=== PATIENT | male | born 1995 | race Caucasian/White ===

== ENCOUNTER 2020-06-15 11:08 | Emergency (ER) | payer BC, SELFPAY ==
--- NOTE | ~2020-06-15 | XR_ITS ---
EXAMINATION: XR hand RT min 3V DATE: 06/15/2020 11:44 INDICATION: Right hand injury and pain. TECHNIQUE: 3 views of right hand were obtained. COMPARISON: None. FINDINGS: Bone alignment is normal. No fracture. Joint spaces are well maintained. IMPRESSION: 1. Normal right hand. Reviewed, dictated and finalized at location A. IMPRESSION: 1. Normal right hand.
[2020-06-15 11:25] VITALS: BP 171/100; PULSE 78; RESP 20; TEMP 36.9; O2SAT 96
--- NOTE | 2020-06-15 11:26 | ED.EXTPRO ---
HPI - Extremity Problem General Chief complaint: Extremity Injury, Upper Stated complaint: pain in R hand Time Seen by Provider: 06/15/20 11:10 Source: patient Mode of arrival: ambulatory Limitations: no limitations History of Present Illness HPI Narrative: 24-year-old man comes in today complaining of pain over the dorsal aspect of his hand, particularly over the 3rd MCP. He states that he slipped at work and hit his hand on a steel plate monitor her wall. He denies any numbness or tingling. He denies any prior hand fractures. MD Complaint: extremity pain Onset (ago): hour(s) (1) Pain Consistency: constant Location: right and upper extremity Quality: sharp Radiation: none Relieving factors: cold therapy and rest Exacerbating factors: range of motion and palpation Related Data Home Medications Medication Instructions Recorded Confirmed venlafaxine 225 mg PO QAM 06/15/20 06/15/20 Allergies Allergy/AdvReac Type Severity Reaction Status Date / Time No Known Allergies Allergy Verified 06/15/20 11:47 Review of Systems Constitutional: Constitutional: Denies chills and Denies fever(s) ENT: Denies dysphagia, Denies nasal congestion and Denies sore throat Cardiovascular: Cardiovascular: Denies chest pain and Denies radiating jaw, neck or arm pain Respiratory: Respiratory: Denies cough and Denies dyspnea Gastrointestinal: Gastrointestinal: Denies abdominal pain, Denies nausea and Denies vomiting Musculoskeletal: Musculoskeletal: Reports as per HPI, Denies back pain, Reports arthralgias and Reports joint swelling Integumentary/Breasts: Skin/Breast: Denies pruritus, Denies erythema and Denies rash Neurologic: Denies vertigo, Denies dizziness and Denies syncope Hematologic/Lymphatic: Hematologic/Lymphatic: Denies easy bleeding and Denies easy bruising Allergic/Immunologic: Allergic/Immunologic: Denies lip swelling and Denies wheezing [facility] Social History Social History (Updated 06/15/20 @ 11:32 by Celio Tompkins MD) Substance use: never Living arrangements: with family Occupation/Education: occupation Additional occupation/education comments: steel fabrication Exam Const: General: alert Nutritional Appearance: obese Orientation/consciousness: patient oriented x3 Limitations: no limitations Other: Moderate acute distress HENMT: Face and sinus: normal facial exam Eyes: Conjunctivae: conjunctivae normal Pupils: Equal, round and reactive pupils present EOM: EOMs intact bilaterally Resp: Effort & Inspection: normal respiratory effort Auscultation: clear to auscultation bilaterally, no rales, no rhonchi and no wheezes Cardio: Rate: regular rate Rhythm: regular rhythm Heart sounds: no murmurs Skin: General skin exam: normal color, no jaundice and no pallor Rashes: no rashes Neuro: General: patient oriented x3, No moves all extremities, no focal motor deficits and CN's II-XI intact bilaterally Cranial nerves: Yes Nystagmus not present Extrem: General: normal to inspection and no clubbing, cyanosis or edema Psych: Appearance: grossly normal and well kempt Mental Status: mental status grossly normal Affect: normal affect Attitude: cooperative Thought content: Yes Normal thought content present Discharge Plan Discharge Clinical Impression: Contusion of hand, right Patient Disposition: Home, Self-Care Condition: Stable Instructions: Contusion in Adults (ED) Additional Instructions: Rest, ice, elevation and ibuprofen. Follow-up/Referrals: PHYSICIAN NOT ON STAFF,NONSTAFF [Primary Care Provider] - Stand Alone Forms: Work/School Release IP Time of Disposition: 11:57
[2020-06-15] MEDS: IBUPROFEN 400 MG TABLET 800 MG PO (11:44)
== END 2020-06-15 12:03 | disposition home or self-care (01) ==
PROVIDERS: Emergency Provider Emergency Medicine
DX: S60.221A Contusion of right hand, initial encounter (principal); W22.8XXA Striking against or struck by other objects, initial encounter
CPT/HCPCS: 73130; 99282; 99283; A9270

== ENCOUNTER 2021-04-02 08:11 | Observation (INO) | payer BC, SELFPAY ==
[2021-04-02] VITALS (10 sets, daily range): BP systolic 117–140; BP diastolic 56–91; PULSE 55–71; RESP 16–20; TEMP 36.3–37.1; O2SAT 96–98; BMI 49.9; BMI 56.2
--- NOTE | 2021-04-02 08:39 | ED.NAVMDI ---
HPI - Nausea/Vomiting/Diarrhea General Chief complaint: Nausea/Vomiting/Diarrhea Stated complaint: THROWING UP BLOOD Time Seen by Provider: 04/02/21 08:39 Source: patient Mode of arrival: ambulatory Limitations: no limitations History of Present Illness HPI Narrative: 25-year-old man whose previous well comes in today complaining of epigastric pain and vomiting 1st, coffee-ground like material, twice and large amounts (greater than a coffee cup full), then vomiting bright red blood. Patient states that the blood amounted to approximately what would fit in a shot cup. He states that he felt ill when he woke up this morning and has been feeling weak and lightheaded since and almost passed out twice. He denies chest pain, shortness of breath, black or bloody stools, cough or cold symptoms, fever or chills, bruising and rash. He states that he occasionally takes ibuprofen for every day aches and pains, but mostly he takes Tylenol for his symptoms. He denies aspirin use. He did not eat anything today. MD elicited complaint: nausea, vomiting and abdominal pain Onset (ago): hour(s) (2) Description of vomiting: bloody and coffee grounds Associated nausea: Yes Associated abdominal pain: Yes Location of pain: epigastric Pain consistency: constant Severity: moderate Quality: sharp Exacerbating factors: none Relieving factors: none Associated symptoms: nausea/vomiting and shortness of breath Related Data Home Medications Medication Instructions Recorded Confirmed venlafaxine 225 mg PO QAM 06/15/20 04/02/21 venlafaxine 37.5 mg PO DAILY 04/02/21 04/02/21 Allergies Allergy/AdvReac Type Severity Reaction Status Date / Time No Known Allergies Allergy Verified 06/15/20 11:47 Review of Systems Review of Systems: All systems reviewed & are unremarkable except as noted in HPI and below Constitutional: Constitutional: Denies chills and Denies fever(s) Eyes: Eyes: Denies change in vision and Denies photophobia ENT: Denies nasal congestion and Denies sore throat Cardiovascular: Cardiovascular: Denies chest pain and Denies radiating jaw, neck or arm pain Respiratory: Respiratory: Denies cough and Reports dyspnea Gastrointestinal: Gastrointestinal: Reports abdominal pain, Denies diarrhea, Reports nausea and Reports vomiting Genitourinary: Genitourinary: Denies hematuria, Denies dysuria and Denies urinary frequency Musculoskeletal: Musculoskeletal: Denies back pain, Denies arthralgias and Denies joint swelling Integumentary/Breasts: Skin/Breast: Denies pruritus, Denies erythema and Denies rash Neurologic: Denies vertigo, Reports dizziness and Denies syncope Hematologic/Lymphatic: Hematologic/Lymphatic: Denies easy bleeding and Denies easy bruising Allergic/Immunologic: Allergic/Immunologic: Denies lip swelling and Denies throat swelling [facility] Social History Social History Smoking status: Current every day smoker Alcohol use details: rarely Substance use: never Living arrangements: with family Additional occupation/education comments: steel fabrication Exam Const: General: no acute distress and alert Nutritional Appearance: obese Orientation/consciousness: patient oriented x3 Limitations: no limitations HENMT: Head: normal to inspection Ears: external ears normal, TM's normal bilaterally and EAC's normal General nose exam: Normal nares present Face and sinus: normal facial exam Mouth: Yes moist mucous membranes Throat: posterior oropharynx normal Eyes: Cornea: corneas normal Pupils: Equal, round and reactive pupils present EOM: EOMs intact bilaterally Resp: Effort & Inspection: normal respiratory effort and not labored Auscultation: clear to auscultation bilaterally, no rales, no rhonchi and no wheezes Cardio: Rate: regular rate Rhythm: regular rhythm Heart sounds: no murmurs GI: GI Palp: Yes Soft to palpation, No Tenderness to palpa
[2021-04-02 09:00] LABS: Basophils Absolute Auto 0.03 K/mm3 (0.00-0.10); Basophils Percent Auto 0.6 % (0.0-1.0); Eosinophils Absolute Auto 0.12 K/mm3 (0.02-0.50); Eosinophils Percent Auto 2.2 % (1.0-6.0); Hematocrit 41.8 % (40.0-54.0); Hemoglobin 13.6 g/dL (14.0-18.0); Immature Granulocyte Absolute 0.01 K/mm3 (0.00-0.00); Immature Granulocyte Percent A 0.2 % (0.0-0.0); Lymphocytes Absolute Auto 1.72 K/mm3 (1.10-4.50); Lymphocytes Percent Auto 32.2 % (18.0-42.0); Mean Corpuscular HGB Conc 32.5 g/dL (32.0-36.0); Mean Corpuscular Hemoglobin 28.8 pg (27.0-31.0); Mean Corpuscular Volume 88.6 fL (78.0-102.0); Mean Platelet Volume 9.2 fl (8.7-11.0); Monocytes Absolute Auto 0.36 K/mm3 (0.10-0.90); Monocytes Percent Auto 6.7 % (2.0-11.0); Neutrophils Absolute Auto 3.1 K/mm3 (1.7-7.2); Neutrophils Percent Auto 58.1 % (50.0-70.0); Platelet Count Result 225 K/mm3 (150-420); Red Blood Count 4.72 M/mm3 (4.70-6.10); Red Cell Distribution Width 12.7 % (11.6-14.4); White Blood Count 5.3 K/mm3 (4.8-10.8)
[2021-04-02] MEDS: SODIUM CHLORIDE 0.9% IV 1,000 ML 999 ML IV CONT (09:05)
[2021-04-02] MEDS: ONDANSETRON INJ 4 MG/2 ML VIAL IV PUSH (09:06)
[2021-04-02] MEDS: PANTOPRAZOLE SODIUM IV 40 MG VIAL 80 MG IV PUSH (09:08)
[2021-04-02 09:15] LABS: Prothrombin Time 10.3 Seconds (9.50-12.10)
[2021-04-02 09:24] LABS: Alanine Aminotransferase 31 U/L (16-63); Albumin Level 3.5 g/dL (3.4-5.0); Alkaline Phosphatase 60 U/L (46-116); Anion Gap 8 mmol/L (8-16); Aspartate Amino Transferase 12 U/L (15-37); Bilirubin,Total 0.2 mg/dL (0.00-1.00); Blood Urea Nitrogen 14 mg/dL (7-18); Calcium 8.7 mg/dL (8.5-10.1); Carbon Dioxide 27 mmol/L (21-32); Chloride 107 mmol/L (98-108); Estimated Glomerular Filt Rate > 60; Glucose 95 mg/dL (70-99); Lipase 90 U/L (73-393); Osmolality Calculated 294 mOsm/kg (285-295); Potassium 4.3 mmol/L (3.5-5.1); Sodium 142 mmol/L (136-145); Total Protein 6.6 g/dL (6.4-8.2)
--- NOTE | 2021-04-02 09:48 | PC.NURSE ---
stool sample requested from pt. pt unable to provide at this time.
[2021-04-02 10:38] LABS: Occult Blood Negative (Negative)
--- NOTE | 2021-04-02 10:42 | PC.NURSE ---
Zachariah contacted for GI consult. no GI o/c. Dr. cintron contacted and will return call when he is finished with procedure
--- NOTE | 2021-04-02 11:11 | PC.NURSE ---
Dr. Liao returned call speaking with dr augustine
--- NOTE | 2021-04-02 11:45 | PC.NURSE ---
report to franklyn on 2nd floor, pt to go to room 202
[2021-04-02] MEDS: DEXTROSE 5%/LACTATED RINGERS 1,000 ML 100 ML IV CONT (13:30)
--- NOTE | 2021-04-02 14:06 | PM.IMHP ---
H&P: HPI History of Present Illness Date/Time: 04/02/21 14:06 Pt being admitted to Observation to monitor H/H for his episodes of Hematemesis. Rogelio Ruiz is a 25 year old male who comes in after having 2 episodes of vomiting. Once was described as coffee ground emesis and another as bright red blood that occured around 0730 this AM. Pt states there have not been any changes to his diet, medications. He has never had this happen before. He denies heartburn, denies changes in stool color, denies N/V at this time, blood clotting disorders, bone disorders, family history of clotting or bone disorders, easy bruising, nose bleeds, trauma. Admits to occasional EtOH use. Only PMHx is mix of Anxiety and Depression for which he takes Venlafaxine. Chief Complaint: vomiting blood Review of Systems Review of Systems: All systems reviewed & are unremarkable except as noted in HPI and below PMFSH Past Medical History Medical History (Updated 04/02/21 @ 16:31 by ANANT Jackson) Anxiety and depression Social History Social History Smoking packs per day: 1 Smoking cigarettes per day: 20.0 Years smoked: 6 Smoking pack-years: 6.00 Smoking status: Current every day smoker Tobacco type: cigarettes Second hand tobacco smoke exposure: No Alcohol intake: never Alcohol use details: rarely Substance use: never Substance use type: does not use Living arrangements: with family Additional occupation/education comments: steel fabrication Gender identity (if verbalized by the patient): Male Sexual Orientation (if Verbalized by the Patient): Straight or Heterosexual Spiritual care concerns: No Meds Home Medications and Allergies Home Medications Medication Instructions Recorded Confirmed Type venlafaxine 225 mg PO QAM 06/15/20 04/02/21 History venlafaxine 37.5 mg PO DAILY 04/02/21 04/02/21 History Allergies Allergy/AdvReac Type Severity Reaction Status Date / Time No Known Allergies Allergy Verified 06/15/20 11:47 Vital Signs Vital Signs - 24 hr 04/02/21 08:32 04/02/21 08:50 04/02/21 08:53 Temperature 98.7 F Pulse Rate 65 60 71 Respiratory Rate 18 Blood Pressure 140/91 H 125/74 122/79 Pulse Oximetry 97 04/02/21 10:26 04/02/21 11:38 04/02/21 12:06 Temperature Pulse Rate 55 L 57 L 56 L Respiratory Rate 18 18 18 Blood Pressure 128/72 137/71 127/56 L Pulse Oximetry 97 97 98 04/02/21 13:38 Temperature 97.6 F Pulse Rate 65 Respiratory Rate 18 Blood Pressure 137/75 Pulse Oximetry 97 Exam Const: General: cooperative, comfortable, no acute distress, alert, awake and Physically active Nutritional Appearance: obese morbidly obese HENMT: Head: normal to inspection, normocephalic and atraumatic Ears: hearing grossly normal bilaterally General nose exam: Normal external nose present Face and sinus: normal facial exam Eyes: General: appearance normal, both eyes and all related structures Alignment and Position: alignment normal and position normal Neck: Neck: normal visual inspection and no JVD Resp: Effort & Inspection: normal respiratory effort Auscultation: clear to auscultation bilaterally Cardio: Jugular venous distension: no JVD Rate: regular rate Heart sounds: S1 normal heart sound present and S2 normal heart sound present GI: Inspection: non-distended and obesity GI Palp: Yes Soft to palpation, Yes Tenderness to palpation present (GI) (right upper quadrant, minimal) and Yes No hepatosplenomegaly present Auscultation: normal bowel sounds Skin: General skin exam: normal color and no rashes or lesions noted Neuro: General: oriented to person, oriented to place and oriented to time Cranial nerves: Yes CN's II-XII intact bilaterally (grossly intact) Cognition (Neuro): normal cognition Speech: normal speech Motor exam (neuro): 5/5 motor strength present throughout Extrem: General: no pedal lourdes
--- NOTE | 2021-04-02 14:10 | PHAR ---
SPOKE W/[employer]IDENTIAL SALES [employer]OCI[employer]. HE VERIFIED W/[employer] THAT PT DOES TAKE TOTAL DAILY DOSE EFFEXOR XR 262.6MG QAM (DAILY). TLS
--- NOTE | 2021-04-02 15:55 | PC.NURSE ---
Patient sitting at bedside talking to visitor. Alert and oriented. Denies pain, abd discomfort, nausea, emisis. Patient states he has had no abd problems since earlier today. Able to tolerate x2 cans of soda. Able to urinate 150cc of clear yellow urine into urinal. IV intact with D5LR infusing at 100 cc/hr. Patient asking when the IV fluids will be stopped. Nurse instructed that the fluids will remain until patient shows he is able to hold fluids down. Patient stated understanding.
[2021-04-02 18:22] LABS: Hematocrit 40.3 % (40.0-54.0); Hemoglobin 12.9 g/dL (14.0-18.0)
--- NOTE | 2021-04-02 19:37 | PC.NURSE ---
Patient's HGB 12.9, HCT40.3 @ 1800. Patient denies nausea, emisis. Tolerated clear liquid dinner. Able to use urinal without difficulty. Call light and belongings within reach.
[2021-04-02] MEDS: PANTOPRAZOLE SODIUM IV 40 MG VIAL IV PUSH (20:55)
--- NOTE | 2021-04-02 21:54 | PC.NURSE ---
Patient called and stated that his IV site was starting to hurt. Nurse assessed site and noted redness on his arm and some swelling. IV site d/c'd. Patient states he has anxiety and does not want another IV placed. SN explained the need for an IV, patient states understanding, but says he has trouble with anxiety and would not be comfortable with having another IV placed. Nurse spoke with MD and explained what patient said and MD stated to explain again the need for an IV. Nurse explained and told patient she would give him a little time to think about it.
--- NOTE | 2021-04-02 22:56 | PC.NURSE ---
Patient continues to refuse IV. Nurse once again explained the importance of IV. notified.
[2021-04-03] VITALS: BP 116/65; PULSE 58; RESP 20; TEMP 36.3; O2SAT 97
--- NOTE | 2021-04-03 00:03 | PC.NURSE ---
Pt resting quietly in bed and doesnt voice any c/o pain or nausea; Lab here to draw blood on patient.
[2021-04-03 00:25] LABS: Hematocrit 39.4 % (40.0-54.0); Hemoglobin 12.6 g/dL (14.0-18.0)
--- NOTE | 2021-04-03 02:12 | PC.NURSE ---
Pt asleep and no signs of discomfort noted.
[2021-04-03 04:00] VITALS: BP 128/58; PULSE 82; RESP 20; TEMP 36.4; O2SAT 97
--- NOTE | 2021-04-03 04:08 | PC.NURSE ---
Pt asleep and no signs of discomfort or nausea noted.
--- NOTE | 2021-04-03 05:45 | PC.NURSE ---
Orthostatic blood pressure is 128/58 while lying and 131/67 while standing. Pt doesnt voice any c/o discomfort or nausea.
[2021-04-03 06:47] LABS: Basophils Absolute Auto 0.02 K/mm3 (0.00-0.10); Basophils Percent Auto 0.3 % (0.0-1.0); Eosinophils Absolute Auto 0.13 K/mm3 (0.02-0.50); Eosinophils Percent Auto 2.2 % (1.0-6.0); Hematocrit 41.6 % (40.0-54.0); Hemoglobin 13.4 g/dL (14.0-18.0); Immature Granulocyte Absolute 0.01 K/mm3 (0.00-0.00); Immature Granulocyte Percent A 0.2 % (0.0-0.0); Lymphocytes Absolute Auto 1.84 K/mm3 (1.10-4.50); Lymphocytes Percent Auto 31.8 % (18.0-42.0); Mean Corpuscular HGB Conc 32.2 g/dL (32.0-36.0); Mean Corpuscular Hemoglobin 28.6 pg (27.0-31.0); Mean Corpuscular Volume 88.7 fL (78.0-102.0); Mean Platelet Volume 9.3 fl (8.7-11.0); Monocytes Percent Auto 5.2 % (2.0-11.0); Neutrophils Absolute Auto 3.5 K/mm3 (1.7-7.2); Neutrophils Percent Auto 60.3 % (50.0-70.0); Platelet Count Result 242 K/mm3 (150-420); Red Blood Count 4.69 M/mm3 (4.70-6.10); Red Cell Distribution Width 12.8 % (11.6-14.4); White Blood Count 5.8 K/mm3 (4.8-10.8)
[2021-04-03 07:05] LABS: Alanine Aminotransferase 31 U/L (16-63); Albumin Level 3.5 g/dL (3.4-5.0); Alkaline Phosphatase 60 U/L (46-116); Anion Gap 7 mmol/L (8-16); Aspartate Amino Transferase 16 U/L (15-37); Bilirubin,Total 0.4 mg/dL (0.00-1.00); Blood Urea Nitrogen 8 mg/dL (7-18); Calcium 8.8 mg/dL (8.5-10.1); Carbon Dioxide 28 mmol/L (21-32); Chloride 106 mmol/L (98-108); Estimated CRCL calculation 190 ml/min; Estimated Glomerular Filt Rate > 60; Glucose 91 mg/dL (70-99); Osmolality Calculated 290 mOsm/kg (285-295); Potassium 4.2 mmol/L (3.5-5.1); Sodium 141 mmol/L (136-145); Total Protein 6.4 g/dL (6.4-8.2)
--- NOTE | 2021-04-03 07:56 | PM.DS ---
DS: Admitting Diagnosis Admitting Diagnosis Admitting Diagnosis: hematemesis DS: Discharge Diagnosis Discharge Diagnosis (1) Hematemesis: Qualifiers: Nausea presence: with nausea Qualified Code(s): K92.0 - Hematemesis Code(s): K92.0 - Hematemesis Status: Acute Assessment and Plan: Negative Stool, follow-up with Dr. Liao GI specialist for possible EGD discharge with pantoprazole and Zofran (2) Anxiety and depression: Code(s): F41.9 - Anxiety disorder, unspecified; F32.9 - Major depressive disorder, single episode, unspecified Status: Acute Assessment and Plan: Continue Venlafaxine DS: Summary Hospital Course Reason for hospitalization: hematemesis Hospital Course: Rogelio Ruiz is a 25 year old male who comes in after having 2 episodes of vomiting. Once was described as coffee ground emesis and another as bright red blood that occured around 0730 this AM the day of admission. Pt states there have not been any changes to his diet, and medications. He has never had this happen before. patient has not had any more hematemesis this day of admission. Patient denies abdominal pain cp, sob, palpitation, diarrhea, constipation, lightheadness, headache, dizziness or chills and fevers. patient will discharge home with pantoprazole he will also need to follow-up with Dr. Liao gastroenteritis specialist for possible EGD. disposition: home with self-care patient observation time spent 60 minutes Time Spent with Patient Time attestation: Total time spent providing and/or coordinating discharge services: Time spent: Greater than 30 minutes ( 60 minutes) Exam Narrative: Exam Narrative: General: A well-developed, well-nourished male sitting up in bed no acute distress. HEENT: Normocephalic, atraumatic. PERRL, EOMI. Sclerae anicteric. Oral mucosa moist. Oropharynx clear. Neck: Supple. Respiratory: Lungs are clear to auscultation bilaterally. Cardiovascular: Regular rate and rhythm with S1-S2. Gastrointestinal: Abdomen is soft, nontender, and nondistended with positive bowel sounds. No organomegaly. Skin: Warm, dry, and slightly pale.. No rash or lesions on limited exam. Extremities: No cyanosis, clubbing, or edema. Radial and pedal pulses intact. Neurological: Alert. Cranial nerves 2-12 are grossly intact. No gross focal deficits to casual conversation. Psychiatric: Pleasant and cooperative with normal mood and affect. Judgment and insight intact. DS: Data Data Completed and Pending Labs on day of discharge: Labs from last 24 hours 04/03/21 04/03/21 04/03/21 06:25 06:25 00:05 WBC 5.8 RBC 4.69 L Hgb 13.4 L 12.6 L Hct 41.6 39.4 L MCV 88.7 MCH 28.6 MCHC 32.2 RDW 12.8 Plt Count 242 MPV 9.3 Immature Gran % (Auto) 0.2 H Neut % (Auto) 60.3 Lymph % (Auto) 31.8 [place] % (Auto) 5.2 Eos % (Auto) 2.2 Baso % (Auto) 0.3 Lymph # (Auto) 1.84 [place] # (Auto) 0.30 Eos # (Auto) 0.13 Baso # (Auto) 0.02 Abs Immat Gran (auto) 0.01 H Absolute Neuts (auto) 3.5 Absolute Nucleated RBC 0.00 Nucleated RBC % 0.0 PT INR Sodium 141 Potassium 4.2 Chloride 106 Carbon Dioxide 28 Anion Gap 7 L BUN 8 Creatinine 0.86 Estim Creat Clear Calc 190 Estimated GFR > 60 Glucose 91 Calculated Osmolality 290 Calcium 8.8 Total Bilirubin 0.4 AST 16 ALT 31 Alkaline Phosphatase 60 Total Protein 6.4 Albumin 3.5 Lipase Stool Occult Blood 04/02/21 04/02/21 04/02/21 18:11 08:55 08:55 WBC RBC Hgb 12.9 L Hct 40.3 MCV MCH MCHC RDW Plt Count MPV Immature Gran % (Auto) Neut % (Auto) Lymph % (Auto) [place] % (Auto) Eos % (Auto) Baso % (Auto) Lymph # (Auto) [place] # (Auto) Eos # (Auto) Baso # (Auto) Abs Immat Gran (auto) Absolute Neuts (auto) Absolute Nucleated RBC Nu
[2021-04-03 08:00] VITALS: BP 135/81; PULSE 64; RESP 18; TEMP 36.6; O2SAT 97
[2021-04-03 08:15] VITALS: BP 104/85
[2021-04-03] MEDS: VENLAFAXINE HCL XR 75 MG CAP.ER.24H 225 MG PO (09:06)
--- NOTE | 2021-04-03 11:35 | PC.NURSE ---
Patient discharging home. All discharge instructions and education reviewed with patient. Patient states understanding. All belongings gathered together and sent home with patient. Patient left floor ambulatory. Denies any questions or concerns at discharge.
--- NOTE | 2021-04-06 15:48 | PC.NURSE ---
Unable to contact for discharge call back.
== END 2021-04-03 11:35 | disposition home or self-care (01) ==
LOC: CHSED 11:48 → CHS2ND 12:00
PROVIDERS: Admitting Provider Emergency Medicine; Emergency Provider Emergency Medicine; Visit Provider Emergency Medicine
DX: K92.0 Hematemesis (principal); F17.200 Nicotine dependence, unspecified, uncomplicated; F41.9 Anxiety disorder, unspecified; F32.9 Major depressive disorder, single episode, unspecified
CPT/HCPCS: 36415; 80053; 82272; 83690; 85014; 85018; 85025; 85610; 96361; 96374; 96375; 96376; 99285; A9270; C9113; G0378; J2405; J7030; J7121

== ENCOUNTER 2022-12-25 13:05 | Emergency (ER) | payer OTHER, SELFPAY ==
--- NOTE | ~2022-12-25 | XR_ITS ---
EXAMINATION: XR hand RT min 3V INDICATION: Right hand pain TECHNIQUE: Three views of the right hand are obtained. COMPARISON: 06/15/2020 FINDINGS: No fracture, dislocation, or subluxation. The bones, soft tissues, and joint spaces are nor mal. There appears to be hyperattenuating material involving the distal fingernail of the fourth fing er. IMPRESSION: 1. No acute osseous abnormality. Reviewed, dictated and finalized at location B. [employer]
--- NOTE | 2022-12-25 13:06 | ED.UPPEXIN ---
HPI - Extremity Injury (Upper) General Chief Complaint: Extremity Injury, Upper Stated Complaint: Hand Injury Time Seen by Provider: 12/25/22 13:06 Source: patient Mode of arrival: ambulatory Limitations: no limitations History of Present Illness HPI narrative: 27-year-old male with a history of anxiety / depression, hematemesis presents to the ER with -- crush injury to his right index finger. His finger got stuck between the conveyor belt and a metal object. No skin break. The right index finger looks erythematous. MD complaint: injury to: right and finger ( Index finger) Onset (ago): minute(s) ( 30 minutes ago.) Other Extremity Injury: Right: fingers Place: work Severity: severe Relieving factors: none Exacerbating factors: none Context: crush Associated symptoms: denies other symptoms Related Data Home Medications Medication Instructions Recorded Confirmed venlafaxine 225 mg tablet,extended 225 mg PO QAM 06/15/20 04/02/21 release 24 hr venlafaxine 37.5 mg 37.5 mg PO DAILY 04/02/21 04/02/21 capsule,extended release 24 hr Allergies Allergy/AdvReac Type Severity Reaction Status Date / Time No Known Allergies Allergy Verified 06/15/20 11:47 Review of Systems Review of Systems: All systems reviewed & are unremarkable except as noted in HPI and below Constitutional: Constitutional: Reports as per HPI and Reports no additional constitutional complaints Eyes: Eyes: Reports as per HPI and Reports no additional eye complaints ENT: Reports system reviewed and no additional complaints, except as documented and Reports as per HPI Cardiovascular: Cardiovascular: Reports as per HPI and Reports no additional cardiovascular complaints Respiratory: Respiratory: Reports as per HPI and Reports no additional respiratory complaints Gastrointestinal: Gastrointestinal: Reports as per HPI and Reports no additional gastrointestinal complaints Genitourinary: Genitourinary: Reports no additional male genitourinary complaints and Reports as per HPI Musculoskeletal: Musculoskeletal: Reports no additional musculoskeletal complaints and Reports as per HPI Comments: Pain of right index finger with decreased range of motion Integumentary/Breasts: Skin/Breast: Reports system reviewed and no additional complaints, except as docu and Reports as per HPI Comments: no skin breakdown of the right index finger. Neurologic: Reports system reviewed and no additional complaints, except as documented and Reports as per HPI Psychiatric: Psychiatric: Reports no additional psychiatric complaints and Reports as per HPI Endocrine: Endocrine: Reports no additional endocrine complaints and Reports as per HPI Hematologic/Lymphatic: Hematologic/Lymphatic: Reports no additional hematologic/lymphatic complaints and Reports as per HPI Allergic/Immunologic: Allergic/Immunologic: Reports no additional allergic/immunologic complaints and Reports as per HPI PMFSH Past Medical History Medical History Anxiety and depression Social History Social History Smoking packs per day: 1 Smoking cigarettes per day: 20.0 Years smoked: 6 Smoking pack-years: 6.00 Smoking status: Current every day smoker Tobacco type: cigarettes Second hand tobacco smoke exposure: No Alcohol intake: never Alcohol use details: rarely Substance use: never Substance use type: does not use Living arrangements: with family Occupation/Education: occupation Additional occupation/education comments: steel fabrication Gender identity (if verbalized by the patient): Male Sexual Orientation (if Verbalized by the Patient): Straight or Heterosexual Spiritual care concerns: No Exam Const: General: no acute distress Nutritional Appearance: well nourished Orientation/consciousness: patient oriented x3 Limitations: no limitations [facility]
[2022-12-25 13:07] VITALS: BP 148/91; PULSE 88; RESP 16; TEMP 36.8; O2SAT 97
[2022-12-25 13:43] VITALS: BP 157/98; PULSE 92; RESP 18; TEMP 36.4; O2SAT 98
[2022-12-25] MEDS: KETOROLAC 30 MG/ML VIAL (*BKC) IM (14:09)
[2022-12-25] MEDS: TETANUS,DIPHTHERIA,AC PERTUSSIS ADULT 0.5 ML (ADACEL) IM (14:10)
[2022-12-25 14:17] VITALS: BP 155/96; PULSE 80; RESP 20; TEMP 37.1; O2SAT 97
--- NOTE | 2022-12-26 07:20 | PC.NURSE ---
On 12/26/22, the student, [rashmi singer ], provided care and completed [facility] documentation on this patient. I have reviewed the student's documentation and agree with the findings.
== END 2022-12-25 14:30 | disposition home or self-care (01) ==
PROVIDERS: Emergency Provider Internal Medicine Critical Care Medicine; PCP Family Medicine
DX: S67.190A Crushing injury of right index finger, initial encounter (principal); F41.9 Anxiety disorder, unspecified; F32.A Depression, unspecified; F17.210 Nicotine dependence, cigarettes, uncomplicated; W31.89XA Contact with other specified machinery, initial encounter
CPT/HCPCS: 73130; 90471; 90715; 96372; 99283; J1885

== ENCOUNTER 2023-02-03 08:34 | Emergency (ER) | payer BC, SELFPAY ==
[2023-02-03 08:34] VITALS: BP 143/90; PULSE 86; RESP 16; TEMP 35.6; O2SAT 98
--- NOTE | 2023-02-03 09:10 | ED.LOWEXIN ---
HPI - Extremity Injury (Lower) General Chief Complaint: Extremity Injury, Lower Stated Complaint: Ankle injury Time Seen by Provider: 02/03/23 08:45 Source: patient and RN notes reviewed Mode of arrival: ambulatory Limitations: no limitations History of Present Illness HPI Narrative: patient was stacking metal pipes at work. Then the pile gave way and the pipe rolled down onto his right anterior ankle. This happened just prior to arrival. MD complaint: ankle injury Injury: Right: ankle Type of Injury: blunt Place: work Severity: moderate Relieving factors: rest Exacerbating factors: movement and palpation Context: direct blow Associated symptoms: able to partially bear weight Other symptoms: none Related Data Home Medications Medication Instructions Recorded Confirmed bupropion HCl 150 mg 24 hr tablet, 150 mg PO DAILY 12/25/22 02/03/23 extended release guanfacine 1 mg tablet 1 mg PO DAILY 12/25/22 02/03/23 oxcarbazepine 300 mg tablet 300 mg PO DAILY 12/25/22 02/03/23 venlafaxine 150 mg 150 mg PO DAILY 12/25/22 02/03/23 capsule,extended release 24 hr Allergies Allergy/AdvReac Type Severity Reaction Status Date / Time No Known Allergies Allergy Verified 02/03/23 08:43 Review of Systems Review of Systems: All systems reviewed & are unremarkable except as noted in HPI and below PMFSH Past Medical History Medical History (Updated 02/03/23 @ 10:08 by Delroy Arellano MD) Anxiety and depression Surgical History Surgical History (Updated 02/03/23 @ 10:08 by Delroy Arellano MD) No pertinent past surgical history Social History Social History Smoking packs per day: 1 Smoking cigarettes per day: 20.0 Years smoked: 6 Smoking pack-years: 6.00 Smoking status: Current every day smoker Tobacco type: cigarettes Second hand tobacco smoke exposure: No Alcohol intake: never Alcohol use details: rarely Substance use: never Substance use type: does not use Living arrangements: with family Occupation/Education: occupation Additional occupation/education comments: steel fabrication Gender identity (if verbalized by the patient): Male Sexual Orientation (if Verbalized by the Patient): Straight or Heterosexual Spiritual care concerns: No Exam Const: General: healthy appearing, no acute distress and alert Nutritional Appearance: well nourished and obese Orientation/consciousness: patient oriented x3 Limitations: no limitations HENMT: Head: normal to inspection Ears: external ears normal Face/Nose/Sinus: Normal external nose present Face and sinus: normal facial exam Mouth: Yes moist mucous membranes Eyes: Conjunctivae: conjunctivae normal Pupils: Equal, round and reactive pupils present EOM: EOMs intact bilaterally Neck: Neck: normal visual inspection Resp: Effort & Inspection: normal respiratory effort Auscultation: clear to auscultation bilaterally Cardio: Rate: regular rate Rhythm: regular rhythm GI: GI Palp: Yes Soft to palpation and No Tenderness to palpation present (GI) Auscultation: normal bowel sounds Back/Spine/Pelvis: Cervical Spine: cervical ROM normal Thoracic/Lumbar Spine: thoraco-lumbar ROM normal Skin: General skin exam: normal color Rashes: no rashes Neuro: General: patient oriented x3, moves all extremities, no focal motor deficits and CN's II-XI intact bilaterally Speech: normal speech Other: limping gait Extrem: General: normal exam except as noted and no clubbing, cyanosis or edema Right lower extremity: ankle Details: tenderness Location: anteriorly, swelling Details: anteriorly, abnormal ROM Details: pain with active ROM Details: with dorsiflexion and pain with passive ROM Details: with dorsiflexion and abrasion ( anterior) Psych: Mental Status: mental status grossly normal Affect: normal affect Attitude: cooperative Course Vital Signs Vital signs: Vital Signs Temperat
== END 2023-02-03 09:25 | disposition home or self-care (01) ==
PROVIDERS: Emergency Provider Emergency Medicine; PCP Family Medicine
DX: S90.01XA Contusion of right ankle, initial encounter (principal); F17.210 Nicotine dependence, cigarettes, uncomplicated; W22.8XXA Striking against or struck by other objects, initial encounter; Y99.0 Civilian activity done for income or pay
CPT/HCPCS: 73610; 99283